=== PATIENT | female | born 1995 | race Caucasian/White ===

== ENCOUNTER 2017-12-31 18:23 | Emergency (ER) | payer SELFPAY ==
[2017-12-31] MEDS: DEXAMETHASONE 10 MG/ML 1 ML INJ PO (20:08)
[2017-12-31] MEDS: ALBUTEROL 0.083% (NEB) 2.5 MG/3 ML AMP HHN (20:17)
[2017-12-31] MEDS: IPRATROPIUM (NEB) 0.5 MG/2.5 ML AMP HHN (20:17)
== END 2017-12-31 21:37 | disposition home or self-care (01) ==
LOC: FTE 18:23
DX: J45.901 Unspecified asthma with (acute) exacerbation (principal); J06.9 Acute upper respiratory infection, unspecified
CPT/HCPCS: 71045; 94644; 99283-25